=== PATIENT | female | born 1950 | race Caucasian/White ===

== ENCOUNTER 2019-01-19 07:04 | Day surgery (SDC) | payer OTHER ==
[2019-01-19] VITALS (11 sets, daily range): BP systolic 99–128; BP diastolic 54–64; PULSE 51–69; RESP 13–21; Ht 149.9 cm; Wt 62.6 kg
[~2019-01-19] VITALS: Ht 149.9 cm; Wt 62.6 kg
[~2019-01-19 07:04] MED LIST: SEVOFLURANE 15 MIN ONE
[2019-01-19] MEDS ORDERED: aspirin (09:07)
[2019-01-19] MEDS ORDERED: norvas (09:09)
[2019-01-19] MEDS ORDERED: atenolo (09:09)
[2019-01-19] MEDS ORDERED: [UNRECOGNIZED DRUG - OTHER] (09:09)
--- NOTE | 2019-01-19 09:17 | HPN ---
Date/Time of Note Date/Time of Note DATE: 01/19/19 TIME: 09:16 Interval H&P Admission Note Pt. seen H&P reviewed: No system changes VINCE PETERS DPM Jan 19, 2019 09:17
[2019-01-19] MEDS ORDERED: BUPIVACAINE 0.5% (SDV) 30 ML INJ ONE (09:30)
[2019-01-19] MEDS ORDERED: LIDOCAINE 1% (MPF) 30 ML INJ ONE (09:30)
[2019-01-19] MEDS ORDERED: POVIDONE IODINE 10% 28.4 GM OINT ONE (09:31)
[2019-01-19] MEDS ORDERED: DEXAMETHASONE 4 MG/ML 1 ML INJ ONE (09:31)
--- NOTE | 2019-01-19 09:37 | PREAC ---
Date/Time of Note Date/Time of Note DATE: 01/19/19 TIME: 09:36 Anesthesia Eval and Record Evaluation Time Pre-Procedure Interview DATE: 01/19/19 TIME: 09:36 Age 68 Sex female NPO: 8 hrs Preoperative diagnosis right foot bunion Planned procedure right foot bunionectomy, osteotomy Past Medical History Past Medical History: Includes Cardio: HTN Endo: Hypothyroid Pulm: Smoking Hx (2 cigs per day/ last smoked 2 days ago) Musculoskeletal: Osteoarthritis Surgery & Anesthesia Issues No known issue Meds Anticoagulation: No Beta Gwen within 24 hr: Yes Reported Medications [atenolo] No Conflict Check 01/19/19 [norvas] No Conflict Check 01/19/19 [ibupr] No Conflict Check 01/19/19 [aspirin] No Conflict Check 01/19/19 Current Medications Lactated Ringer's 1,000 ml @ 30 mls/hr Q24H IV ; Start 01/19/19 at 10:00; Stop 01/19/19 at 12:00 Meds reviewed: Yes Allergies Coded Allergies: Penicillins (Verified Allergy, Severe, itchiness, 01/19/19) Allergies Reviewed: Yes Labs/Studies Labs Reviewed: Reviewed by anesthesiologist test: N/A Studies: ECG, CXR Pre-procedure Exam Last vitals Vital Signs Date Temp Pulse Resp B/P (MAP) Pulse Ox O2 O2 Flow FiO2 Time Delivery Rate 01/19/19 97.0 51 16 128/61 98 Room Air 08:23 (83) Airway: Adequate mouth opening, Adequate thyromental dist Mallampati: Mallampati II Teeth: Normal Lung: Normal Heart: Normal ASA Physical Status ASA physical status: 2 Emergency: None Planned Anesthetic General/MAC: LMA Planned Pain Management Parenteral pain med, Local by surgeon Pre-operative Attestations Prior to commencing anesthesia and surgery, the patient was re-evaluated, there was verification of: *The patient's identity *The results of appropriate recent lab work and preoperative vital signs *The above evaluation not changing prior to induction *Anesthetic plan, risk benefits, alternative and complications discussed with patient/family; questions answered; patient/family understands, accepts and wishes to proceed. MARIELLE MCKEON Jan 19, 2019 09:37
[2019-01-19] MEDS ORDERED: ONDANSETRON 4 MG INJ ONE (09:42)
[2019-01-19] MEDS ORDERED: MEPERIDINE 100 MG INJ ONE (09:42)
[2019-01-19] MEDS ORDERED: METOCLOPRAMIDE 10 MG INJ ONE (09:42)
[2019-01-19] MEDS ORDERED: LIDOCAINE 2% (SDV) 5 ML INJ ONE (09:42)
[2019-01-19] MEDS ORDERED: PROPOFOL 20 ML ONE (09:42)
[2019-01-19] MEDS ORDERED: LACTATED RINGER'S 1,000 ML IV SCH (10:00)
[2019-01-19] MEDS ORDERED: ATROPINE 1 MG/10 ML SYRINGE ONE (10:08)
[2019-01-19] MEDS ORDERED: OXYCODONE/ACETAMINOPHEN (5/325) TAB PO PRN ×2 (10:30)
[2019-01-19] MEDS ORDERED: MIDAZOLAM 1 MG/ML 2 ML INJ IV PRN (10:30)
[2019-01-19] MEDS ORDERED: ONDANSETRON 4 MG INJ IV PRN (10:30)
[2019-01-19] MEDS ORDERED: MEPERIDINE 25 MG INJ IV PRN (10:30)
[2019-01-19] MEDS ORDERED: hydrALAzine 20 MG INJ IV PRN (10:30)
[2019-01-19] MEDS ORDERED: FENTAnyl 50 MCG/ML VIAL IV PRN ×3 (10:30)
[2019-01-19] MEDS ORDERED: METOCLOPRAMIDE 10 MG INJ IV PRN (10:30)
[2019-01-19] MEDS ORDERED: LABETALOL HCL 20MG INJ IV PRN (10:30)
[2019-01-19] MEDS ORDERED: DIPHENHYDRAMINE 50 MG INJ IV PRN (10:30)
[2019-01-19] MEDS ORDERED: EPHEDrine 25 MG/5 ML SYG IV PRN (10:30)
[2019-01-19] MEDS ORDERED: EPHEDrine 25 MG/5 ML SYG ONE (10:35)
--- NOTE | 2019-01-19 10:59 | SIPON ---
Date/Time of Note Date/Time of Note DATE: 01/19/19 TIME: 10:56 Operative Report Preoperative Diagnosis Preoperative diagnosis hallux abductovalgus with bunion formation right foot Postoperative Diagnosis Postop diagnosis same Operation/Procedure Performed Osteotomy and bunionectomy with fixation first metatarsal right foot Jose Miguel osteotomy with fixation proximal phalanx hallux right foot and application of active shoe Surgeon see signature line registered medical assistant registered medical assistant none Anesthesia: general Estimated blood loss: minimal Transfusion Required none Specimen Bone Grafts/Implants Plan skin graft a 2.5 x 16 [place] headless screw and 8 x 8 right staple and a right active shield none Complications none VINCE PETERS DPM Jan 19, 2019 10:59
--- NOTE | 2019-01-19 12:49 | PAC ---
Date/Time of Note Date/Time of Note DATE: 01/19/19 TIME: 12:49 Post-Anesthesia Notes Post-Anesthesia Note Last documented vital signs Vital Signs Date Temp Pulse Resp B/P (MAP) Pulse Ox O2 O2 Flow FiO2 Time Delivery Rate 01/19/19 98.0 69 21 99/54 (69) 96 Room Air 12:34 01/19/19 2.0 11:16 Activity: WNL Respiratory function: WNL Cardiovascular function: WNL Mental status: Baseline Pain reasonably controlled: Yes Hydration appropriate: Yes Nausea/Vomiting absent: Yes GHASSAN MITCHELL MD Jan 19, 2019 12:49
--- NOTE | 2019-01-19 13:27 | PREOPHP ---
DATE OF ADMISSION: 01/19/2019 HISTORY OF PRESENT ILLNESS: The patient is being admitted to the hospital for elective foot surgery, palliative treatment unsuccessful. The patient has been explained surgery, complications, alternatives and elected to have elective foot surgery. The patient has a pain on the right bunion area. ALLERGIES: PENICILLIN. MEDICINE: High blood pressure medicine only. REVIEW OF SYSTEMS: Negative heart, lung, liver, kidney, thyroid. PAST MEDICAL HISTORY: Negative diabetes. SOCIAL HISTORY: She does smoke approximately 2 cigarettes a day. Negative alcohol. See any other pertinent history and upper extremity physical exam by Dr. Mele Adams. PHYSICAL EXAMINATION: EXTREMITIES: Lower extremities: DP and PT are equal and regular, 2.5. NEUROLOGICAL: Negative for pathology. DERMATOLOGICAL: Negative for pathology. MUSCULOSKELETAL: X-ray findings show a hallux abductovalgus with bunion, right foot. FINAL DIAGNOSES: Hallux abductovalgus with bunion, right foot. Dictated By: VINCE MARKS/BALA Conf#: [id number] DID#: [id number] MTDD
--- NOTE | 2019-01-19 15:03 | OPR ---
DATE OF OPERATION: 01/19/2019 PREOPERATIVE DIAGNOSIS: Hallux abductovalgus with bunion formation, right foot. POSTOPERATIVE DIAGNOSIS: Hallux abductovalgus with bunion formation, right foot. PROCEDURE: Osteotomy and bunionectomy with fixation, 1st metatarsal, right foot; Jose Miguel osteotomy with fixation proximal phalanx, hallux, right foot and Actishield applied. SURGEON: Vince Gordon DPM DESCRIPTION OF PROCEDURE: The patient was brought to the surgical suite, placed in the supine position. The patient was under general anesthesia. The patient had pneumatic cuff at [facility]. The patient had a sterile prep and drape and findings were consistent with the pre and postoperative diagnosis. The first incision is a dorsomedial longitudinal incision over the 1st metatarsophalangeal joint using sharp and blunt dissection. The incision was carried deep. The Bovie was used as necessary. A horizontal capsulotomy was made over the 1st metatarsophalangeal joint and the head of 1st metatarsal was freed of its attachment medially and dorsally. The medial eminence was then resected and a horizontal V-osteotomy with the apex distal and base medial going from medial to lateral was made through and through and the capital fragment was moved laterally, impacted upon the shaft. The overhang of the shaft was resected, rasp smooth and then a K-wire was placed over the osteotomy site and through it measured a 16 x 2.5 Ilene headless screw was screwed and held the osteotomy site intact. The area was cleansed and now attention was turned to the proximal phalanx which was freed of its attachment dorsally and medially and an Jose Miguel osteotomy with the apex lateral and base proximal was made with its widest point being 3 mm. Using sharp and blunt dissection, the bone was excised and the distal part of the proximal phalanx was impacted upon the base and a staple by Eddie was then applied over the osteotomy site and put in place. This held the osteotomy site perfect and the area was then cleansed. The Actishield was then applied over the 1st metatarsal area and 3-0 Vicryl was used to coaptate the subcutaneous tissue and the skin was coaptated using 5-0 Nylon. The area was then injected with 0.5% Marcaine to prolong anesthesia and a dressing of 1/2- inch Steri-Strips, Betadine ointment, 4 x 4's impregnated with Betadine solution was applied and then an outer layer of Mahad with an outer layer of Coban made into a semi-compressive dressing. The patient tolerated surgery well and was returned to recovery room in satisfactory condition. There was minimum blood loss and no complications. Dictated By: VINCE MARKS/BALA Conf#: [id number] DID#: [id number] MTDD
== END 2019-01-19 13:10 | disposition home or self-care (01) ==
LOC: SDS 07:04
PROVIDERS: ATTEND Podiatrist
DX: M20.11 Hallux valgus (acquired), right foot (principal); M21.611 Bunion of right foot; I10 Essential (primary) hypertension; E03.9 Hypothyroidism, unspecified; Z87.891 Personal history of nicotine dependence
CPT/HCPCS: 28299; 88304; 88311; J0461; J1100; J2175; J2405; J2765